=== PATIENT | male | born 1945 | race Hispanic/Latino ===

== ENCOUNTER 2024-11-07 10:55 | Emergency (ER) | payer OTHER ==
[~2024-11-07] VITALS: Ht 172.7 cm; Wt 79.4 kg
[~2024-11-07 10:55] MED LIST: AEC81 PO; ATOR40TA71 PO; CARV3.1262 PO; GABA-1405 PO; GLIM4TAB36 PO; ISOS30TA92 PO; METF-446 PO; NITR0.4T50 SL
[2024-11-07 11:01] VITALS: BP 121/57; PULSE 75; RESP 16; TEMP 99.4
--- NOTE | 2024-11-07 11:08 | ERN ---
ED Note History of Present Illness Stated Complaint: MULTIPLE COMPLAINTS Chief Complaint: Fatigue Time Seen by MD: 11:06 Dictation: PATIENT IS A 79-YEAR-OLD MALE HERE WITH MULTIPLE COMPLAINTS TO INCLUDE GENERALIZED BODY WEAKNESS, BILATERAL ARTHRALGIA TO KNEES AND SHOULDERS FOR THE LAST 2-3 DAYS. NO FEVER NO CHILLS NO NAUSEA VOMITING. HE DENIES LOSS OF TASTE OR SMELL. ALSO HE DENIES CHEST PAIN, BACK PAIN SOB NAUSEA VOMITING OR DIARRHEA. Allergies: Coded Allergies: No Known Drug Allergies (Unverified Allergy, Unknown, 05/27/16) Home Meds Active Scripts Isosorbide Mononitrate (Isosorbide Mononitrate ER) 30 Mg Tab.er.24h, 30 MG PO DAILY, #60 TAB 3 Refills Prov:BIRGIT FU MD 06/20/16 Nitroglycerin (Nitroglycerin) 0.4 Mg Tab.subl, 0.4 MG SL AD PRN for CHEST PAIN, #60 TAB.SL 3 Refills Prov:BIRGIT FU MD 06/20/16 Carvedilol (Coreg) 3.125 Mg Tablet, 3.125 MG PO BID, #60 TAB 3 Refills Prov:BIRGIT FU MD 06/20/16 Reported Medications Gabapentin (Gabapentin) 600 Mg Tablet, 600 MG PO TID, TAB 06/20/16 Atorvastatin Calcium (Atorvastatin Calcium) 40 Mg Tablet, 40 MG PO HS, TAB 06/20/16 Glimepiride (Glimepiride) 4 Mg Tablet, 4 MG PO DAILY, TAB 06/20/16 Aspirin (ASPIRIN 81 MG ECTAB) 81 Mg Ectab, 81 MG PO DAILY, TAB.EC 06/20/16 Metformin HCl (Metformin HCl) 1,000 Mg Tablet, 1000 MG PO BID, TAB 06/20/16 Past Medical History Past Medical History: Diabetes-Type II Surgical History: Other Surgical History Other: PROSTATE SURGERY RN Note Reviewed/Agreed w/PFSH: Yes Review of System Dictation CONSTITUTIONAL: NEGATIVE EXCEPT FOR HPI GB W HEAD/FACE: NEGATIVE EXCEPT FOR HPI EENT: NEGATIVE EXCEPT FOR HPI RESPIRATORY: NEGATIVE EXCEPT FOR HPI GASTROINTESTINAL/ABDOMINAL: NEGATIVE EXCEPT FOR HPI GENITOURINARY: NEGATIVE EXCEPT FOR HPI MUSCULOSKELETAL: NEGATIVE EXCEPT FOR HPI INTEGUMENTARY: NEGATIVE EXCEPT FOR HPI NEUROLOGICAL/PSYCH: NEGATIVE EXCEPT FOR HPI HEMATOLOGIC/LYMPHATIC: NEGATIVE EXCEPT FOR HPI ALL SYSTEMS NEGATIVE, EXCEPT NOTED ABOVE. 13 POINT REVIEW OF SYSTEMS ASSESSED AND ALL NEGATIVE EXCEPT FOR ABOVE. Initial Vital Sign VS Vital Signs Date Time Temp Pulse Resp B/P (MAP) Pulse Ox O2 Delivery O2 Flow Rate FiO2 11/07/24 11:01 99.3 75 16 121/57 98 Room Air Physical Exam Dictation VITAL SIGNS REVIEWED GENERAL APPEARANCE: ALERT, ORIENTED X 3, NO ACUTE DISTRESS, WELL DEVELOPED, NOURISHED. HEAD AND FACE: NON-TRAUMATIC. EYES: PERRL, PINK CONJUNCTIVAS, EYELID NO TRAUMA, ANTERIOR CHAMBER WITH ARCUS SENILIS. EARS: PINNAS INTACT AND NO SIGNS OF TRAUMA OR ERYTHEMA EAR CANALS CLEAR AND NO DISCHARGE TM NO ERYTHEMA NOSE: NO DISCHARGE, NO BLEEDING. OROPHARYNX: MOUTH NORMAL, TONGUE PINK, PHARYNX CLEAR,NO ERYTHEMA, TONSILS NO EXUDATES, NO ABSCESSES NOTED, MUCOUS MEMBRANE MOIST NECK: SUPPLE, NON-TENDER, NO THYROMEGALY, NO MASSES, NO JVD, NO BRUITS BREAST:DEFERRED CHEST:NO TENDERNESS, NO CREPITUS, NO PARADOXICAL MOVEMENT, NO RETRACTIONS LUNGS:CLEAR, WELL-VENTILATED, SYMMETRIC, NO RALES, NO WHEEZING, NO RHONCHI, NO STRIDOR, GOOD BREATH SOUNDS BILATERALLY HEART: REGULAR RATE, REGULAR RHYTHM, NO MURMUR, NO GALLOPS VASCULAR: NO PERIPHERAL EDEMA, ABDOMEN: SOFT, POSITIVE BOWEL SOUNDS, NONDISTENDED, NO GUARDING, NONTENDER, NO REBOUND, NO MASSES NO HEPATOMEGALY, NO SPLENOMEGALY, NO HUGHES'S SIGN, NO HERNIAS. RECTAL: DEFERRED GENITAL: DEFERRED NEUROLOGICAL: NORMAL SPEECH, MOTOR FUNCTION INTACT, SENSORY FUNCTION INTACT NIH IS 0, GAIT IS STEADY MUSCULOSKELETAL: NECK NONTENDER, FULL RANGE OF MOTION, BACK NONTENDER, FULL RANGE OF MOTION, EXTREMITIES: NONTENDER, FULL RANGE OF MOTION SKIN: COLOR PINK, DRY, NO TURGOR, NO RASH, NO LACERATIONS, NO ABRASIONS, NO CONTUSIONS. LYMPHATIC: DEFERRED Results (Laboratory/Radiology) Laboratory/Radiology Laboratory Tests Test 11/07/24 11:15 11/07/24 11:37 White Blood Count 11.1 K/uL (4.8-10.8) H Red Blood Count 3.92 MIL/uL (4.50-6.20) L Hemoglobin 11.6 g/dL (14.0-18.0) L Hematocrit 34.2 % (42-54) L Mean Corpuscular Volume 87.2 fL (79-99) Mean Corpuscular Hemoglobin 29.6 pg (27.0-33.0) Mean Corpuscular Hemoglobin Concent 33.9 g/dL (32.0-36.0) Red Cell Distribution Width 12.9 % (11.0-15.5) Platelet Count 182 K/uL (130-400) Mean Platelet Volume 10.4 fL (7.5-10.5) Immature Granulocyte % (Auto) 0.8 % (0-1) Neutrophils (%) (Auto) 84.1 % (40.0-77.0) H Lymphocytes (%) (Auto) 7.4 % (21.0-51.0) L Monocytes (%) (Auto) 7.3 % (3.0-13.0) Eosinophils (%) (Auto) 0.0 % (0.0-8.0) Basophils (%) (Auto) 0.4 % (0.0-5.0) Neutrophils # (Auto) 9.3 K/uL (1.8-7.7) H Lymphocytes # (Auto) 0.8 K/uL (1.0-4.8) L Monocytes # (Auto) 0.8 K/uL (0.1-1.0) Eosinophils # (Auto) 0.00 K/uL (0.00-0.70) Basophils # (Auto) 0.04 K/uL (0.00-0.20) Absolute Immature Granulocyte (auto 0.09 K/uL (0-1) Nucleated Red Blood Cells 0.0 % (0.0-0.19) White Cell Morphology Comment See comments Sodium Level 133 mmol/L (136-145) L Potassium Level 4.5 mmol/L (3.5-5.1) Chloride Level 97 mmol/L (101-111) L Carbon Dioxide Level 28 mmol/L (21-32) Blood Urea Nitrogen 21 mg/dL (7-18) H Creatinine 1.3 mg/dL (0.5-1.3) Glomerular Filtration Rate Calc 57 mL/min (>90) Random Glucose 273 mg/dL (70-105) H Total Calcium 9.2 mg/dL (8.5-10.1) Troponin I High Sensitivity 27 ng/L (4-75) SARS-CoV-2 Antigen (Rapid) PRESUMPTIVE NEGATIVE Labs Reviewed?: Yes EKG: (+) NSR EKG Comment: EKG NORMAL SINUS RHYTHM/HEART RATE 64/AXIS NORMAL/NO ED Course ED Course Orders Procedure Category Date Status Time Covid19 (Sars Antigen LAB 11/07/24 Complete Rapid) 11:06 Cbc With Differential LAB 11/07/24 Complete 11:06 Troponin I High LAB 11/07/24 Complete Sensitivity 11:06 12 Lead Ekg Tracing- EKG 11/07/24 Complete Technical 11:06 Basic Metabolic Panel LAB 11/07/24 Complete 11:06 Vital Signs Date Time Temp Pulse Resp B/P (MAP) Pulse Ox O2 Delivery O2 Flow Rate FiO2 11/07/24 11:01 99.3 75 16 121/57 98 Room Air HEART Score Response (Comments) Value History: Low suspicion (0) 0 Age: > 65yrs (+2) 2 Risk Factors: 1-2 risk factors (+1) 1 Initial Troponin: Normal limit (0) 0 Total 3 Medical Decision Making MDM MEDICAL DISCHARGE MAKING PATIENT LEFT AGAINST MEDICAL ADVICE 16 40 INFORMED STAFF HE WAS GOING HOME DID NOT SIGN AMA FOR DX & DISP Disposition: AMA Departure Impression: Primary Impression: Stage 3 chronic kidney disease Additional Impressions: Uncontrolled diabetes mellitus, Weak Condition: Against Medical Advice Referrals: OREN VILLEGAS MD (PCP) Time of Disposition: 16:43 I have reviewed the case, and I agree with, Diagnosis and Plan I performed the substantive portion of the visit. I have reviewed and personally made and approve the management plan that is documented in the notes by myself or the MIREYA. I acknowledge full responsibility for the patient's management plan. TIMO GOODEN NP Nov 07, 2024 11:08 MOLLY MORGAN MD Nov 08, 2024 12:49
[2024-11-07 11:22] LABS: BASOPHILS # (AUTO) 0.04 K/uL (0.00-0.20); BASOPHILS % (AUTO) 0.4 % (0.0-5.0); HEMATOCRIT 34.2 % (42-54); IMMATURE GRANULOCYTE ABSOLUTE 0.09 K/uL (0-1); LYMPHOCYTES # (AUTO) 0.8 K/uL (1.0-4.8); LYMPHOCYTES % (AUTO) 7.4 % (21.0-51.0); MEAN CORPUSCULAR HEMOGLOBIN 29.6 pg (27.0-33.0); MEAN CORPUSCULAR HGB CONC 33.9 g/dL (32.0-36.0); MEAN CORPUSCULAR VOLUME 87.2 fL (79-99); MONOCYTES # (AUTO) 0.8 K/uL (0.1-1.0); MONOCYTES % (AUTO) 7.3 % (3.0-13.0); NEUTROPHILS # (AUTO) 9.3 K/uL (1.8-7.7); NEUTROPHILS % (AUTO) 84.1 % (40.0-77.0); PLATELET COUNT (AUTO) 182 K/uL (130-400); RED BLOOD CELL COUNT(AUTO) 3.92 MIL/uL (4.50-6.20); RED CELL DISTRIBUTION WIDTH 12.9 % (11.0-15.5); WHITE BLOOD COUNT (AUTO) 11.1 K/uL (4.8-10.8)
[2024-11-07 11:35] LABS: CREATININE 1.3 mg/dL (0.5-1.3); POTASSIUM 4.5 mmol/L (3.5-5.1)
--- NOTE | 2024-11-07 11:57 | EKG ---
[facility] Test Date: 2024-11-07 Test Time: 11:50:48 Pat Name: DOMINIQUE LOVELACE Department: ED Room: Gender: M Event Management Consultant: michelle winkler : 1945 Requested By: TIMO GOODEN Order Number: [id number] Reading MD: Roma Mcguire Measurements Intervals Randall Rate: 64 P: 4 LA: 168 QRS: 46 QRSD: 98 T: 48 QT: 403 QTc: 416 Interpretive Statements Sinus rhythm Compared to ECG 06/18/2016 10:52:24 No significant changes Electronically Signed On 11-08-2024 16:07:05 INVENTORY TECHNICIAN by Roma Mcguire Please click the below link to view image of tracing.
== END 2024-11-07 12:01 | disposition left against medical advice (07) ==
LOC: EDH 10:55
DX: E11.22 Type 2 diabetes mellitus with diabetic chronic kidney disease (principal); N18.2 Chronic kidney disease, stage 2 (mild); E11.65 Type 2 diabetes mellitus with hyperglycemia; R53.1 Weakness; Z79.82 Long term (current) use of aspirin; Z79.84 Long term (current) use of oral hypoglycemic drugs; Z79.899 Other long term (current) drug therapy; Z20.822 Contact with and (suspected) exposure to COVID-19
CPT/HCPCS: 36415; 80048; 84484; 85025; 87426; 93005; 99284